=== PATIENT | female | born 1960 | race Two or more races ===

== ENCOUNTER 2022-10-20 06:28 | Day surgery (SDC) | payer OTHER ==
[~2022-10-20 06:28] MED LIST: ADULT LOW DOSE81 M1 PO; CLARITIN5 MG PO; COZAAR25 MG PO; CRESTOR5 MG PO; NORVASC5 MG PO; SINGULAIR10 MG PO; SYNTHROID75 MCG PO
[2022-10-20] MEDS ORDERED: MORGIDOX100 MG PO (13:32)
== END 2022-10-20 16:30 | disposition home or self-care (01) ==
LOC: CIR.AMB 06:28
PROVIDERS: ATTEND Obstetrics & Gynecology
DX: N84.0 Polyp of corpus uteri (principal); R93.89 Abnormal findings on diagnostic imaging of other specified body structures; Z20.822 Contact with and (suspected) exposure to COVID-19; I10 Essential (primary) hypertension; E03.9 Hypothyroidism, unspecified

== ENCOUNTER 2023-01-31 07:55 | Outpatient (CLI) | payer OTHER ==
[~2023-01-31 07:55] MED LIST changes: +MORGIDOX100 MG PO
== END 2023-01-31 07:57 | disposition home or self-care (01) ==
LOC: LAB 07:55
DX: N92.1 Excessive and frequent menstruation with irregular cycle (principal); I10 Essential (primary) hypertension; E78.00 Pure hypercholesterolemia, unspecified

== ENCOUNTER 2023-01-31 08:49 | Outpatient (CLI) | payer OTHER | END 2023-01-31 09:02 | disposition home or self-care (01) | LOC: TOM 08:49 | DX: N92.1 Excessive and frequent menstruation with irregular cycle (principal) ==

== ENCOUNTER 2023-03-30 07:33 | Outpatient (CLI) | payer OTHER | END 2023-03-30 07:36 | disposition home or self-care (01) | LOC: LAB 07:33 | PROVIDERS: ATTEND Obstetrics & Gynecology Gynecologic Oncology | DX: R97.1 Elevated cancer antigen 125 [CA 125] (principal) ==

== ENCOUNTER 2023-04-14 07:40 | Outpatient (CLI) | payer OTHER | END 2023-04-14 07:47 | disposition home or self-care (01) | LOC: NUCLEAR 07:40 | PROVIDERS: ATTEND Obstetrics & Gynecology Gynecologic Oncology | DX: C54.1 Malignant neoplasm of endometrium (principal) ==

== ENCOUNTER 2023-04-21 07:28 | Outpatient (CLI) | payer OTHER | END 2023-04-21 07:38 | disposition home or self-care (01) | LOC: MRI 07:28 | PROVIDERS: ATTEND Obstetrics & Gynecology Gynecologic Oncology | DX: C54.1 Malignant neoplasm of endometrium (principal) | CPT/HCPCS: 72197 ==

== ENCOUNTER 2024-04-02 11:00 | Outpatient (CLI) | payer OTHER | END 2024-04-02 11:05 | disposition home or self-care (01) | LOC: MAMO-SONO 11:00 | PROVIDERS: ATTEND Obstetrics & Gynecology | DX: N60.11 Diffuse cystic mastopathy of right breast (principal); N60.12 Diffuse cystic mastopathy of left breast ==